=== PATIENT | male | born 2000 | race Caucasian/White ===

== ENCOUNTER 2021-06-11 12:48 | Emergency (ER) | payer OTHER, MEDICAID ==
[~2021-06-11] VITALS: Ht 185.4 cm; Wt 68.0 kg
[2021-06-11 14:15] VITALS: BP 118/68
== END 2021-06-11 14:15 | disposition home or self-care (01) ==
LOC: M.ERS 12:48
DX: S09.8XXA Other specified injuries of head, initial encounter (principal); W22.8XXA Striking against or struck by other objects, initial encounter; Y93.89 Activity, other specified; Y92.89 Other specified places as the place of occurrence of the external cause; Y99.8 Other external cause status